=== PATIENT | male | born 2000 | race African-American/Black ===

== ENCOUNTER 2022-04-05 19:34 | Emergency (ER) | payer MEDICAID ==
--- NOTE | 2022-04-05 20:05 | NUR ---
PATIENT CALL TO TRIAGE, NO RESPONSE PATIENT LEFT WITHOUT BEING SEEN BY DR. DIAZ. NO FURTHER CARE PROVIDED FOR PATIENT.
--- NOTE | 2022-04-05 20:10 | NUR ---
CALLED FOR THE SECOND TIME , NO RESPONSE
--- NOTE | 2022-04-05 20:20 | NUR ---
CALLED FOR THE THIRD TIME, NO RESPONSE
== END 2022-04-05 20:05 | disposition left against medical advice (07) ==
LOC: MED 19:34
DX: M79.643 Pain in unspecified hand (principal); Z53.21 Procedure and treatment not carried out due to patient leaving prior to being seen by health care provider